=== PATIENT | female | born 1955 | race Caucasian/White ===

== ENCOUNTER 2018-01-16 14:32 | Emergency (ER) | payer OTHER, SELFPAY ==
[2018-01-16 14:33] VITALS: BP 147/103; PULSE 99; RESP 16; TEMP 36.6; O2SAT 99; BMI 22.1
[2018-01-16 14:44] VITALS: O2SAT 99
--- NOTE | 2018-01-16 15:09 | NURSING ---
FD ARRIVED AND TESTED FOR CO, TESTED -, DR. SALVADOR AWARE, LABS CANCELLED.
[2018-01-16 15:45] VITALS: BP 136/74; PULSE 95; RESP 14; O2SAT 99
--- NOTE | 2018-01-16 15:50 | ED.DCSUM_ITS ---
- ER Visit Summary Date of Service: 01/16/18 Chief Complaint: [] History of Present Illness: The patient is a 62 F exposed to carbon monoxide in her home today after furnace work. She had a mild headache so called paramedics to check the levels in her house. Her level was elevated initially but she was placed on an oxygen mask for several hours now. She is now completely asymptomatic. She feels back at baseline. Physical Examination: Vitals are within normal limits. She is not in distress. Neck is supple. Heart tones are regular and without murmur. Lungs are clear bilaterally. Abdomen is soft and nontender. No focal or lateralizing neuro findings. Mental status examination normal. Test Results: Repeat CO level here by the paramedics was undetectable. A blood level is pending to confirm. She is not a smoker. She is completely asymptomatic at this point and she has been on oxygen for several hours Emergency Department Course and Treatment: Is quite well and is a symptomatically and further treatment is not felt to be indicated. She will follow-up as needed Treatment Plan: We will up as needed Disposition: Home in stable condition Impression: Initial encounter carbon monoxide exposure This note was generated with [employer] dictation software. It may contain incorrect words, spelling, and punctuation that were not noted in review of the chart prior to signing ED Disposition - Plan for ED Patient: Chief Complaint: Shortness of Breath Instructions: ED CO Poisoning
[2018-01-16 16:10] LABS: Carboxyhemoglobin Frac (CO) 8.4 % (0.0-1.5)
[2018-01-16 16:31] VITALS: BP 130/78; PULSE 90; RESP 14; O2SAT 99
[2018-01-16 17:16] VITALS: BP 139/70; PULSE 90; RESP 14; O2SAT 98
[2018-01-16 17:53] VITALS: BP 128/70; PULSE 85; RESP 14; O2SAT 99
== END 2018-01-16 17:54 | disposition home or self-care (01) ==
PROVIDERS: Emergency Provider Emergency Medicine
DX: Z77.29 Contact with and (suspected) exposure to other hazardous substances (principal)
CPT/HCPCS: 82375; 99284